=== PATIENT | female | born 1940 | race Caucasian/White ===

== ENCOUNTER → 2016-08-28 | Outpatient (CLI) | payer OTHER, MEDICARE | LOC: BMCIMAGING 13:28 | PROVIDERS: ATTEND Internal Medicine | DX: Z12.31 Encounter for screening mammogram for malignant neoplasm of breast (principal) | CPT/HCPCS: G0202 ==

== ENCOUNTER → 2016-10-23 | Outpatient (CLI) | payer OTHER, MEDICARE | LOC: BHFA 10:45 | PROVIDERS: ATTEND Internal Medicine Cardiovascular Disease | DX: R01.1 Cardiac murmur, unspecified (principal) ==

== ENCOUNTER 2017-03-16 09:25 | Emergency (ER) | payer OTHER, MEDICARE ==
--- NOTE | 2017-03-16 09:50 | EDPHY ---
H & P Stated Complaint: Flu sxs x 1 day;spouse flu+;wants to get checked Source: Patient, Family (Daughter) Exam Limitations: No limitations - Personal History Current Tetanus Diphtheria and Acellular Pertussis (TDAP): Yes Tetanus Vaccine Date: 2005 - Medical/Surgical History Hx Asthma: No Hx Chronic Respiratory Disease: No Hx Diabetes: Yes Hx Cardiac Disease: No Hx Renal Disease: No Hx Cirrhosis: No Hx Alcoholism: No Hx HIV/AIDS: No Hx Splenectomy or Spleen Trauma: No Other PMH: DM I, bladder CA, hypothyroid, bladder surgery, tonsillectomy, adnoidectomy, kidney stone, tubal ligation, anal fissures - Social History Smoking Status: Never smoked Time Seen by Provider: 03/16/17 09:49 HPI/ROS: HPI: This is a 76-year-old female who presents with Chief Complaint: Flu sxs x 1 day;spouse flu+;wants to get checked Location: Body Quality: Aches Duration: 24 hr Signs and Symptoms:+ subjective fever, + chills, + dry hacking cough, + fatigue , no postnasal drip, no runny nose, no sore throat, no chest pain, shortness of breath, no abdominal pain, no nausea, no vomiting Timing: Sudden, constant Severity: Moderate Context: Patient has a history of type 1 diabetes mellitus and bladder cancer presents with 1 day history of body aches subjective fever, nonproductive cough that is dry and hacking, chills, fatigue. was in the emergency room yesterday and diagnosed with influenza and started on Tamiflu. No history of lung disease. Patient has been eating and drinking normally. Has not taking any antipyretics today. She does report her blood sugars are running in the 200s. She admits to taking 1 of her 's Tamiflu yesterday. She politely declines any laboratory studies, IV fluid hydration. She is here with her daughter requesting and influenza test as she wants to know if she actually has influenza. Modifying Factors: Tamiflu Comment: ROS: see HPI Constitutional: No fever, no chills, no weight loss Eyes: No blurred vision Respiratory: No shortness of breath, no cough Cardiovascular: No chest pain Gastrointestinal: No nausea, no vomiting, no diarrhea Genitourinary: No dysuria Extremities: No myalgias Neurologic: No weakness, no numbness Skin: No rashes Hematologic: No bruising, no bleeding MEDICAL/SURGICAL/SOCIAL HISTORY: Medical/Surgical history: DM I, bladder CA, hypothyroid, bladder surgery, tonsillectomy, adenoidectomy, kidney stone, tubal ligation, anal fissures Social history: . Retired. CONSTITUTIONAL: Pleasant elderly female who appears younger than stated age, nontoxic in appearance, awake and alert, no obvious distress HEENT: Atraumatic and normocephalic, PERRL, EOMI. Tympanic membranes clear. Oropharynx clear, no exudate and moist pink mucosa. Airway patent. No lymphadenopathy. No meningismus. Cardiovascular: Normal S1/S2, regular rate, regular rhythm, without murmur rub or gallop. PULMONARY/CHEST: Symmetrical and nontender. Clear to auscultation bilaterally. Good air movement. No accessory muscle usage. ABDOMEN: Soft, nondistended, nontender, no rebound, no guarding, no peritoneal signs, no masses or organomegaly. No CVAT. EXTREMITIES: 2/2 pulses, strength 5/5, no deformities, no clubbing, no cyanosis or edema. NEUROLOGICAL: no focal neuro deficits. GCS 15. SKIN: Warm and dry, no erythema. no rash. Good capillary refill. (Angie Fox) Constitutional: Initial Vital Signs Temperature (C) 36.7 C 03/16/17 09:30 Heart Rate 108 H 03/16/17 09:30 Respiratory Rate 18 03/16/17 09:30 Blood Pressure 163/85 H 03/16/17 09:30 O2 Sat (%) 98 03/16/17 09:30 O2 Delivery Mode Room Air Allergies/Adverse Reactions: iodine Allergy (Verified 03/16/17 09:32) nitrofurantoin Allergy (Verified 03/16/17 09:32) Home Medications: Medication Instructions Recorded Lantus 100 UNITS/ML (RX) 11/06/14 Multivitamin 11/06/14 Synthroid 11/06/14 Benzonatate [Tessalon Pearles (RX)] 100 mg PO Q6 PRN #12 cap 03/16/17 Insulin Lispro [Humalog] unit SQ 03/16/17 Lisinopril [Zestril 10 mg (*)] 10 mg PO 03/16/17 Oseltamivir Phosphate [Tamiflu 75 75 mg PO BID #10 cap 03/16/17 mg (*)] Medical Decision Making ED Course/Re-evaluation: Influenza test ordered Vital signs reviewed upon arrival in heart rate 108. Offered patient IV fluids and laboratory studies due to advanced age and type 1 diabetes mellitus. Patient politely declined. She requests for her vital signs to be repeated upon discharge. No signs of otitis media/sinusitis/meningitis/hypoxia 1050: Patient has now decided that she would benefit from 1 L normal saline but again has declined laboratory studies. Influenza a and B are negative. Patient is elderly with influenza exposure. Decision was made to give Tamiflu and Tessalon Perles This patient was seen under the supervision of my secondary supervising physician. I evaluated care for this patient independently. (Angie Fox) Differential Diagnosis: Adult fever including but not limited to viral syndromes including influenza, urinary tract infection, pneumonia and sepsis. (Angie Fox) Other Provider: The patient was evaluated and managed by the Physician Physician Executive. My co- signature indicates that I have reviewed this chart and I agree with the findings and plan of care as documented. I am the secondary supervising physician. (Marion Caban) - Data Points Medications Given: Discontinued Medications Sodium Chloride (Ns) 1,000 mls @ 0 mls/hr IV ONCE ONE PRN Reason: Wide Open Stop: 03/16/17 10:17 Last Admin: 03/16/17 10:15 Dose: 1,000 mls Departure - Departure Disposition: Home, Routine, Self-Care Clinical Impression: Exposure to influenza Condition: Good Instructions: Benzonatate (By mouth), Oseltamivir (By mouth), Influenza (ED) Additional Instructions: Consume a minimum of 8-10 glasses of water daily. Eat a bland diet for the next 48 hours and then slowly advance as tolerated. Rest as much as possible until you are feeling better. Monitor your blood sugars while you are fighting an infection. Referrals: Beth Weir MD [Primary Care Provider] - As per Instructions Prescriptions: Benzonatate [Tessalon Pearles (RX)] 100 mg PO Q6 PRN #12 cap PRN Reason: Cough, Moderate Oseltamivir Phosphate [Tamiflu 75 mg (*)] 75 mg PO BID #10 cap
[2017-03-16] MEDS ORDERED: NS 1,000 ML IV ONE (10:16)
[2017-03-16 11:05] VITALS: BP 176/80; PULSE 90; RESP 16; TEMP 98.8; O2SAT 96
== END 2017-03-16 11:03 | disposition home or self-care (01) ==
DX: Z20.828 Contact with and (suspected) exposure to other viral communicable diseases (principal); E10.9 Type 1 diabetes mellitus without complications; Z85.51 Personal history of malignant neoplasm of bladder